=== PATIENT | male | born 1990 | race Caucasian/White ===

== ENCOUNTER 2024-01-24 09:01 | Emergency (ER) | payer BC, SELFPAY ==
[2024-01-24 09:16] VITALS: BP 115/60; PULSE 85; RESP 16; TEMP 37.1; O2SAT 98
--- NOTE | 2024-01-24 09:19 | ED.ABDPAIN ---
HPI - Abdominal Pain General Chief Complaint: Abdominal Pain Stated Complaint: abdominal pain Time Seen by Provider: 01/24/24 09:24 Source: patient and RN notes reviewed Mode of arrival: ambulatory Limitations: no limitations History of Present Illness HPI narrative: 33-year-old male presented for complaint of lower abdominal pain. Onset yesterday. Denies associated nausea, vomiting, diarrhea, hematochezia or melena. Denies fever weight loss, Or change in appetite. Reports history of colitis about a month ago. states he is taking his 's pain medication for symptoms. He is requesting pain medicine and work note. Related Data Home Medications Medication Instructions Recorded Confirmed escitalopram oxalate 10 mg tablet 10 mg DIRECTED 01/24/24 01/24/24 risperidone 2 mg tablet 2 mg DIRECTED 01/24/24 01/24/24 trazodone 50 mg tablet 50 mg DIRECTED 01/24/24 01/24/24 Allergies Allergy/AdvReac Type Severity Reaction Status Date / Time Penicillins Allergy Mild Unknown Unverified 01/24/24 09:19 Review of Systems Review of Systems: CONSTITUTIONAL: Denies body aches, fever, chills CARDIOVASCULAR: Denies chest pain, palpitations, or edema. RESPIRATORY: Denies cough or dyspnea. GASTROINTESTINAL: Endorses abdominal pain, Denies nausea, vomiting, diarrhea, hematochezia, melena, hematemesis GENITOURINARY: Denies dysuria, hematuria, or CVA tenderness. MUSCULOSKELETAL: Denies back pain, joint pain, or myalgia. NEUROLOGIC: Denies headache All systems reviewed & are unremarkable except as noted in HPI and below PMFSH Past Medical History Medical History (Updated 01/24/24 @ 10:14 by Nicki Cali APRN) Schizophrenia Comments At time of signature, I have reviewed and agree with nursing past medical, surgical, social and family history unless otherwise noted. Please see nursing chart for further information. There is no relevant family history pertinent to the presenting complaint Exam Narrative: GENERAL: Well-appearing, and in no acute distress. ENT: Mucous membranes pink and moist. CHEST: No respiratory distress. Clear to auscultation. HEART: Regular rate and rhythm. No murmur appreciated. Normal peripheral pulses. ABDOMEN: abd soft, nondistended, normal active bowel sounds. Tender abdomen to bilateral lower quads, slightly worse to LLQ; No guarding, rebound tenderness, asymmetry SKIN: Warm, dry, no rash. Capillary refill normal. Normal skin turgor. NEURO: No focal deficits. Alert and oriented x3. PSYCH: Normal affect. Course Course Emergency Course: Patient is aware of diagnosis, understands and agrees to treatment plan. Anticipatory guidance given. Patient agrees to follow-up as directed and is aware of reasons to seek care at the emergency department. Portions of this record may have been created with voice recognition software Level of Care: Express Care Visit Vital Signs Vital signs: Vital Signs Temperature 98.8 F 01/24/24 09:16 Pulse Rate 85 01/24/24 09:16 Respiratory Rate 16 01/24/24 09:16 Blood Pressure 115/60 01/24/24 09:16 Pulse Oximetry 98 01/24/24 09:16 Oxygen Delivery Room Air 01/24/24 09:16 Temperature 98.8 F 01/24/24 09:16 Pulse Rate 85 01/24/24 09:16 Respiratory Rate 16 01/24/24 09:16 Blood Pressure 115/60 01/24/24 09:16 Pulse Oximetry 98 01/24/24 09:16 Oxygen Delivery Room Air 01/24/24 09:16 MDM - Abdominal Pain MDM Narrative Medical decision making narrative: Discussed physical exam findings; offered ER transfer and discussed possible etiologies of pt's pain/symptoms. Pt declines at this time, stating 'it isn't that bad.' Advised supportive measures and signs/symptoms to go to the ER. Pt is stable, minimal pain, tolerating PO intake, wants to follow the colitis diet. Pt appropriate for outpt treatment and f/u. Differential Diagnosis Differential diagnosis: Likely abdominal pain, acute appendicitis, calcul
== END 2024-01-24 09:50 | disposition home or self-care (01) ==
PROVIDERS: Emergency Provider Nurse Practitioner Family
DX: R10.31 Right lower quadrant pain (principal); R10.32 Left lower quadrant pain; F20.9 Schizophrenia, unspecified
CPT/HCPCS: 99213; G0463